=== PATIENT | female | born 1970 | race Caucasian/White ===

== ENCOUNTER 2016-07-27 23:00 | Emergency (ER) | payer MEDICAID, OTHER ==
[2016-07-28] MEDS ORDERED: CLINDAMYCIN HCL 150 MG CAPSULE PO ONE (01:56)
--- NOTE | 2016-07-28 01:57 | ER Document Report ---
ED General - General Chief Complaint: Abscess Stated Complaint: POSSIBLE BITE ON LEFT THIGH Notes: Patient is 46-year-old female who presents for complaint of redness and swelling over the inside aspect of her left thigh. She says she thinks she had a bug bite the redness continues to red and swollen the foreskin to ER. No fevers. No vomiting. No diarrhea. No other complaints at this time. TRAVEL OUTSIDE OF THE [place] IN LAST 30 DAYS: No - Related Data Allergies/Adverse Reactions: aspirin [From Aspirin Regimen Romero/Calcium] Allergy (Verified 09/26/15 15:01) calcium carbonate [From Aspirin Regimen Romero/Calcium] Allergy (Verified 15:01) Past Medical History - Social History Smoking Status: Never Smoker Chew tobacco use (# tins/day): No Frequency of alcohol use: None Drug Abuse: None Family History: Reviewed & Not Pertinent Patient has suicidal ideation: No Patient has homicidal ideation: No Pulmonary Medical History: Reports: Hx Asthma Neurological Medical History: Reports: Hx Migraine Renal/ Medical History: Denies: Hx Peritoneal Dialysis Musculoskeltal Medical History: Reports Hx Arthritis Psychiatric Medical History: Reports: Hx Bipolar Disorder, Hx Depression Past Surgical History: Reports: Hx Section, Hx Cholecystectomy, Hx Orthopedic Surgery - shoulder - Immunizations Hx Diphtheria, Pertussis, Tetanus Vaccination: Yes Review of Systems - Review of Systems Notes: My Normal Review Basic REVIEW OF SYSTEMS: CONSTITUTIONAL : Denies fever, chills, or sweats. Denies recent illness. RESPIRATORY: Denies cough, cold, or chest congestion. Denies shortness of breath, difficulty breathing, or wheezing. GASTROINTESTINAL: Denies abdominal pain. Denies nausea, vomiting, or diarrhea. Denies constipation. Last BM: MUSCULOSKELETAL: Denies neck or back pain or joint pain or swelling. SKIN: Denies rash or skin lesions. NEUROLOGICAL: Denies altered mental status or loss of consciousness. Denies headache. Denies weakness or paralysis or loss of use of either side. Denies problems with gait or speech. Denies sensory or motor loss. ALL OTHER SYSTEMS REVIEWED AND NEGATIVE. Physical Exam - Vital signs Vitals: Temp Pulse Resp BP Pulse Ox 98.4 F 77 16 131/70 H 98 07/27/16 23:08 07/27/16 23:08 07/27/16 23:08 07/27/16 23:08 07/27/16 23:08 - Notes Notes: General Appearance: Well nourished, alert, cooperative, no acute distress, no obvious discomfort. Well-appearing. Vitals: reviewed, See vital signs table. Eyes: PERRL, EOMI, Conjuctiva clear Extremities: strength 5/5 in all extremities, good pulses in all extremities, no swelling or tenderness in the extremities, no edema. Skin: Some redness and swelling to the left medial thigh. Area of redness approximately 3 inches in diameter. Is a small raised area in the middle consistent with a bug bite. There is no fluctuance. No abscess on palpation. Neuro: speech clear, oriented x 3, normal affect, responds appropriately to questions. Course - Vital Signs Vital signs: Temp Pulse Resp BP Pulse Ox 98.4 F 77 16 131/70 H 98 07/27/16 23:08 07/27/16 23:08 07/27/16 23:08 07/27/16 23:08 07/27/16 23:08 - Transfer of Care Notes: 07/28/16 02:01 Patient has what appears to be a bug bites with the super imposed secondary infection. This no skin necrosis. Nothing to suggest that this is a brown recluse bite. She's had no fevers. The area is warm to touch. We will place on clindamycin. I encourage her use ice packs to area. She has no palpable swelling or fluctuance. No evidence of abscess. She's encouraged return to ER if there is any spreading of the redness or swelling. Patient agrees with plan and will be discharged home. Dictation of this chart was performed using voice recognition software; therefore, there may be some unintended grammatical errors. Discharge - Discharge Clinical Impression: Insect bite Qualifiers: Encounter type: initial encounter Qualified Code(s): W57.XXXA - Bitten or stung by nonvenomous insect and other nonvenomous arthropods, initial encounter Cellulitis Qualifiers: Site of cellulitis: unspecified site Qualified Code(s): L03.90 - Cellulitis, unspecified Condition: Good Disposition: HOME, SELF-CARE Additional Instructions: Please place ice packs on the red area for 30 minutes at a time. Please take the antibiotic as prescribed. Please stop the antibiotics if you develop diarrhea. Please return to the ER immediately if you develop spreading redness, any skin breakdown or blackening, fevers, or feel unwell. Prescriptions: Clindamycin HCl 300 mg PO ASDIR #56 capsule
[2016-07-28 02:20] VITALS: BP 126/76
== END 2016-07-28 02:12 | disposition home or self-care (01) ==
LOC: ER 23:00
DX: L02.416 Cutaneous abscess of left lower limb (principal); W57.XXXA Bitten or stung by nonvenomous insect and other nonvenomous arthropods, initial encounter; Z88.6 Allergy status to analgesic agent
CPT/HCPCS: 99281

== ENCOUNTER 2017-08-24 20:06 | Emergency (ER) | payer OTHER ==
--- NOTE | 2017-08-24 20:33 | ER Document Report ---
ED Medical Screen (RME) - General Chief Complaint: Vaginal Bleeding Stated Complaint: VAGINAL BLEEDING Time Seen by Provider: 08/24/17 20:24 Notes: 47-year-old female with history of dysfunctional uterine bleeding. Was told she would likely need a hysterectomy but lost her insurance. Now has her insurance back and the bleeding started up again. States that she feels like she is going to pass out. Passing large blood clots the size of her fist. Cramping and pain but no fever, chills, sweats or other issues at this time I have greeted and performed a rapid initial assessment of this patient. A comprehensive ED assessment and evaluation of the patient, analysis of test results and completion of the medical decision making process will be conducted by additional ED providers. TRAVEL OUTSIDE OF THE [place] IN LAST 30 DAYS: No - Related Data Allergies/Adverse Reactions: aspirin [From Aspirin Regimen Romero/Calcium] Allergy (Verified 09/26/15 15:01) calcium carbonate [From Aspirin Regimen Romero/Calcium] Allergy (Verified 15:01) Past Medical History Pulmonary Medical History: Reports: Hx Asthma Neurological Medical History: Reports: Hx Migraine Renal/ Medical History: Denies: Hx Peritoneal Dialysis Musculoskeltal Medical History: Reports Hx Arthritis Psychiatric Medical History: Reports: Hx Bipolar Disorder, Hx Depression Past Surgical History: Reports: Hx Section, Hx Cholecystectomy, Hx Orthopedic Surgery - shoulder - Immunizations Hx Diphtheria, Pertussis, Tetanus Vaccination: Yes Physical Exam - Vital signs Vitals: Temp Pulse Resp BP Pulse Ox 98.5 F 70 18 125/80 100 08/24/17 20:28 08/24/17 20:28 08/24/17 20:28 08/24/17 20:28 08/24/17 20:28 Course - Vital Signs Vital signs: Temp Pulse Resp BP Pulse Ox 98.5 F 70 18 125/80 100 08/24/17 20:28 08/24/17 20:28 08/24/17 20:28 08/24/17 20:28 08/24/17 20:28
[2017-08-24 21:30] LABS: ABSOLUTE BASOPHILS # (AUTO) 0.1 10^3/uL (0.0-0.2); ABSOLUTE EOSINOPHILS # (AUTO) 0.3 10^3/uL (0.0-0.6); ABSOLUTE LYMPHOCYTES (AUTO) 2.8 10^3/uL (0.5-4.7); ABSOLUTE MONOCYTES (AUTO) 0.7 10^3/uL (0.1-1.4); ABSOLUTE NEUT (AUTO) 5.5 10^3/uL (1.7-8.2); BASOPHILS % (AUTO) 1.1 % (0-2); EOSINOPHILS % (AUTO) 2.8 % (0-6); HEMATOCRIT 27.5 % (36.0-47.0); HEMOGLOBIN 8.5 g/dL (12.0-15.5); LYMPHOCYTES % (AUTO) 30.2 % (13-45); MEAN CORPUSCULAR HEMOGLOBIN 20.4 pg (27.0-33.4); MEAN CORPUSCULAR HGB CONC 30.9 g/dL (32.0-36.0); MEAN CORPUSCULAR VOLUME 66 fl (80-97); MONOCYTES % (AUTO) 7.6 % (3-13); PLATELET COUNT 511 10^3/uL (150-450); RED BLOOD COUNT 4.15 10^6/uL (3.72-5.28); RED CELL DISTRIBUTION WIDTH 19.4 % (11.5-14.0); SEGMENTED NEUTROPHILS % (AUTO) 58.3 % (42-78); TOTAL CELLS COUNTED % (AUTO) 100 %; WHITE BLOOD COUNT 9.4 10^3/uL (4.0-10.5)
[2017-08-24 21:53] LABS: ALANINE AMINOTRANSFERASE 23 U/L (9-52); ALBUMIN 4.6 g/dL (3.5-5.0); ALKALINE PHOSPHATASE 57 U/L (38-126); ANION GAP 10 (5-19); ASPARTATE AMINO TRANSFERASE 18 U/L (14-36); BILIRUBIN,DIRECT 0.2 mg/dL (0.0-0.4); BILIRUBIN,TOTAL 0.2 mg/dL (0.2-1.3); BLOOD UREA NITROGEN 12 mg/dL (7-20); CALCIUM 9.6 mg/dL (8.4-10.2); CARBON DIOXIDE 30 mmol/L (22-30); CHLORIDE 100 mmol/L (98-107); GLUCOSE 77 mg/dL (75-110); POTASSIUM 4.1 mmol/L (3.6-5.0); TOTAL PROTEIN 7.9 g/dL (6.3-8.2)
--- NOTE | 2017-08-24 22:12 | RADIOLOGY REPORT (SQ) ---
EXAM DESCRIPTION: U/S NON-OB PELVIS TV W/O DOP COMPLETED DATE/TIME: 08/24/2017 9:56 pm REASON FOR STUDY: dysfunction bleeding LMP 06/30/2017 COMPARISON: 11/10/2015 TECHNIQUE: Dynamic and static grayscale images acquired of the pelvis via transvaginal approach and recorded on PACS. LIMITATIONS: None. FINDINGS: UTERUS: Contour normal. No mass. ENDOMETRIAL STRIPE: No focal or generalized thickening. No masses. CERVIX: 2.8 cm. 2 nabothian cysts. RIGHT OVARY: Ovary not seen. RIGHT OVARY DOPPLER: Normal arterial vascular flow without evidence for torsion. LEFT OVARY: Ovary not seen. LEFT OVARY DOPPLER: Normal arterial vascular flow without evidence for torsion. FREE FLUID: None noted. OTHER: No other significant finding. MEASUREMENTS: UTERUS: 10.2 x 5.9 x 5.4 cm. ENDOMETRIAL STRIPE: 6.7 mm. RIGHT OVARY: Ovary not seen. LEFT OVARY: Ovary not seen. IMPRESSION: 2 nabothian cysts were noted. The study was otherwise normal. TECHNICAL DOCUMENTATION: JOB ID: [id number]- All Rights Reserved Reading location - IP/workstation name: [email or web address]
[2017-08-24] MEDS ORDERED: NORMAL SALINE 1000 ML 1,000 ML IV ONE (23:46)
[2017-08-24] MEDS ORDERED: NORMAL SALINE 1000 ML 1,000 ML IV PRN (23:46)
[2017-08-24] MEDS ORDERED: TRANEXAMIC ACID INJ/PF 1,000 MG/10 ML SDV IV PRN (23:51)
--- NOTE | 2017-08-25 00:01 | ER Document Report ---
ED GI/ - General Chief Complaint: Vaginal Bleeding Stated Complaint: VAGINAL BLEEDING Time Seen by Provider: 08/24/17 20:24 Mode of Arrival: Ambulatory Information source: Patient Notes: History of present illness-47 years old female presents today with nearly 2 months history of irregular menses heavy menses and bleeding heavily. Recently last couple of days started having dizziness lightheadedness therefore presented to the ED. Passing blood clots. Having abdominal cramps. Denies any chest pain shortness of breath. Denies any other constitutional symptoms. REVIEW OF SYSTEMS: CONSTITUTIONAL : Denies fever, chills, or sweats. Denies recent illness. EENT: Denies eye, ear, throat, or mouth pain or symptoms. Denies nasal or sinus congestion or discharge. Denies throat, tongue, or mouth swelling or difficulty swallowing. CARDIOVASCULAR: Denies chest pain. Denies palpitations or racing or irregular heart beat. Denies ankle edema. RESPIRATORY: Denies cough, cold, or chest congestion. Denies shortness of breath, difficulty breathing, or wheezing. GASTROINTESTINAL: Denies abdominal pain or distention. Denies nausea, vomiting , or diarrhea. Denies blood in vomitus, stools, or per rectum. Denies black, tarry stools. Denies constipation. GENITOURINARY: Denies difficulty urinating, painful urination, burning, frequency, blood in urine, or discharge. FEMALE GENITOURINARY: Denies vaginal bleeding, heavy or abnormal periods, irregular periods. Denies vaginal discharge or odor. MUSCULOSKELETAL: Denies back or neck pain or stiffness. Denies joint pain or swelling. SKIN: Denies rash, lesions or sores. HEMATOLOGIC : Denies easy bruising or bleeding. LYMPHATIC: Denies swollen, enlarged glands. NEUROLOGICAL: Denies confusion or altered mental status. Denies passing out or loss of consciousness. Denies dizziness or lightheadedness. Denies headache. Denies weakness or paralysis or loss of use of either side. Denies problems with gait or speech. Denies sensory loss, numbness, or tingling. Denies seizures. PSYCHIATRIC: Denies anxiety or stress. Denies depression, suicidal ideation, or homicidal ideation. ALL OTHER SYSTEMS REVIEWED AND NEGATIVE. PHYSICAL EXAMINATION: GENERAL: Well-appearing, well-nourished and in no acute distress. HEAD: Atraumatic, normocephalic. EYES: Pupils equal round and reactive to light, extraocular movements intact, conjunctiva are normal. ENT: Nares patent, oropharynx clear without exudates. Moist mucous membranes. NECK: Normal range of motion, supple without lymphadenopathy LUNGS: Breath sounds clear to auscultation bilaterally and equal. No wheezes rales or rhonchi. HEART: Regular rate and rhythm without murmurs ABDOMEN: Soft, nontender, nondistended abdomen. No guarding, no rebound. No masses appreciated. Female : deferred Musculoskeletal: Normal range of motion, no pitting or edema. No cyanosis. NEUROLOGICAL: Cranial nerves grossly intact. Normal speech, normal gait. Normal sensory, motor exams PSYCH: Normal mood, normal affect. SKIN: Warm, Dry, normal turgor, no rashes or lesions noted. Dictation was performed using [employer] voice recognition software TRAVEL OUTSIDE OF THE [place] IN LAST 30 DAYS: No - HPI Patient complains to provider of: Abdominal pain - Related Data Allergies/Adverse Reactions: aspirin [From Aspirin Regimen Romero/Calcium] Allergy (Verified 09/26/15 15:01) calcium carbonate [From Aspirin Regimen Romero/Calcium] Allergy (Verified 15:01) Past Medical History - Social History Smoking Status: Former Smoker Chew tobacco use (# tins/day): No Frequency of alcohol use: Rare Drug Abuse: None Family History: Reviewed & Not Pertinent Patient has suicidal ideation: No Patient has homicidal ideation: No Pulmonary Medical History: Reports: Hx Asthma Neurological Medical History: Reports: Hx Migraine Renal/ Medical History: Denies: Hx Peritoneal Dialysis Musculoskeltal Medical History: Reports Hx Arthritis Psychiatric Medical History: Reports: Hx Bipolar Disorder, Hx Depression Past Surgical History: Reports: Hx Section, Hx Cholecystectomy, Hx Orthopedic Surgery - shoulder - Immunizations Hx Diphtheria, Pertussis, Tetanus Vaccination: Yes Review of Systems - Review of Systems Notes: As per history of complain Physical Exam - Vital signs Vitals: Temp Pulse Resp BP Pulse Ox 98.5 F 70 18 125/80 100 08/24/17 20:28 08/24/17 20:28 08/24/17 20:28 08/24/17 20:28 08/24/17 20:28 Course - Vital Signs Vital signs: Temp Pulse Resp BP Pulse Ox 98.5 F 70 18 125/80 100 08/24/17 20:28 08/24/17 20:28 08/24/17 20:28 08/24/17 20:28 08/24/17 20:28 - Laboratory Result Diagrams: 08/24/17 21:10 08/24/17 21:10 Laboratory results interpreted by me: 08/24/17 21:10 Hgb 8.5 L Hct 27.5 L MCV 66 L MCH 20.4 L MCHC 30.9 L RDW 19.4 H Plt Count 511 H - Diagnostic Test Radiology reviewed: Reports reviewed - 1. Ultrasound of the pelvis reported by radiologist as unremarkable except Bartholin's cyst. Discharge - Discharge Clinical Impression: Dysmenorrhea, Menstrual disorder Condition: Fair Instructions: Dysmenorrhea ([facility]) Prescriptions: Tranexamic Acid 1,300 mg PO TID 3 Days tablet
[2017-08-25 00:39] LABS: INTERNATIONAL RATION (INR) 0.91; PROTHROMBIN TIME 12.9 SEC (11.4-15.4)
[2017-08-25 02:25] VITALS: BP 121/74
== END 2017-08-25 02:23 | disposition home or self-care (01) ==
LOC: ER 20:06
DX: N94.6 Dysmenorrhea, unspecified (principal); N92.6 Irregular menstruation, unspecified; N88.8 Other specified noninflammatory disorders of cervix uteri; R42 Dizziness and giddiness; J45.909 Unspecified asthma, uncomplicated; Z88.6 Allergy status to analgesic agent; Z87.891 Personal history of nicotine dependence
CPT/HCPCS: 99284; 96361; 96374; 36415; 84703; 85025; 85610; 85730; 80053; 76830; J7030; J3490

== ENCOUNTER 2018-04-04 16:26 | Observation (INO) | payer OTHER ==
--- NOTE | 2018-04-04 17:01 | ER Document Report ---
ED General - General Mode of Arrival: Ambulatory Information source: Patient TRAVEL OUTSIDE OF THE [place] IN LAST 30 DAYS: No <LESLIE REESE - Last Filed: 04/04/18 17:08> <PAUL AGUILAR - Last Filed: 04/04/18 18:39> <MINI UNGER - Last Filed: 04/04/18 23:32> - General Chief Complaint: Chest Pain Stated Complaint: SHORTNESS OF BREATH Time Seen by Provider: 04/04/18 16:44 Notes: Patient is a 47 year old female presenting to the emergency department complaining of left peristernal chest pain and shortness of breath onset yesterday, worsening today. Patient states her chest pain is exacerbated with breathing and deep breathing and also complains of some heart palpitations. She states she becomes very short of breath on exertion. Patient states she has a history of asthma but does not attribute her shortness of breath to this due to her not hearing any wheezing. Patient states she is currently on her menstrual cycle which started early on Mar.28 and is described as heavy with a copious amount of blood clots. ( LESLIE REESE) Review of patient's records shows that in 11/09/2015 the patient had a hemoglobin of 6.1 and was transfused 3 units of packed RBCs. (PAUL AGUILAR) - Related Data Allergies/Adverse Reactions: Sulfa (Sulfonamide Antibiotics) Allergy (Intermediate, Verified 04/04/18 20:34) RASH aspirin [From Aspirin Regimen Romero/Calcium] Allergy (Verified 04/04/18 20:34) calcium carbonate [From Aspirin Regimen Romero/Calcium] Allergy (Verified 20:34) Past Medical History - General Information source: Patient - Social History Smoking Status: Former Smoker Cigarette use (# per day): No Chew tobacco use (# tins/day): No Smoking Education Provided: No Frequency of alcohol use: None Family History: Reviewed & Not Pertinent Pulmonary Medical History: Reports: Hx Asthma Neurological Medical History: Reports: Hx Migraine Musculoskeletal Medical History: Reports Hx Arthritis Psychiatric Medical History: Reports: Hx Bipolar Disorder, Hx Depression, Hx Post Traumatic Stress Disorder Past Surgical History: Reports: Hx Section, Hx Cholecystectomy, Hx Orthopedic Surgery - shoulder - Immunizations Hx Diphtheria, Pertussis, Tetanus Vaccination: Yes <LESLIE REESE - Last Filed: 04/04/18 17:08> - Medical History Medical History: Other - Chronic anemia, menorrhagia, transfused on 11/09/2015 for hemoglobin of 6.1 Renal/ Medical History: Reports: Other - Menorrhagia with chronic anemia <PAUL AGUILAR - Last Filed: 04/04/18 18:39> <MINI UNGER - Last Filed: 04/04/18 23:32> Other: States she is no longer on any medications for mental health (LESLIE REESE) Review of Systems - Review of Systems Constitutional: No symptoms reported EENT: No symptoms reported Cardiovascular: See HPI, Chest pain, Palpitations Respiratory: See HPI, Short of breath Gastrointestinal: No symptoms reported Genitourinary: No symptoms reported Female Genitourinary: No symptoms reported Musculoskeletal: No symptoms reported Skin: No symptoms reported Hematologic/Lymphatic: No symptoms reported Neurological/Psychological: No symptoms reported -: Yes All other systems reviewed and negative <LESLIE REESE - Last Filed: 04/04/18 17:08> - Review of Systems Female Genitourinary: Heavy/abnormal periods - Patient has a long history of heavy periods with clots.. denies: No symptoms reported <PAUL AGUILAR - Last Filed: 04/04/18 18:39> Physical Exam <LESLIE REESE - Last Filed: 04/04/18 17:08> <PAUL AGUILAR - Last Filed: 04/04/18 18:39> <MINI UNGER - Last Filed: 04/04/18 23:32> - Vital signs Vitals: Temp Pulse Resp BP Pulse Ox 98.4 F 69 20 129/56 H 100 04/04/18 16:39 04/04/18 16:39 04/04/18 16:39 04/04/18 16:39 04/04/18 16:39 - Notes Notes: GENERAL: Alert, interacts well. No acute distress. HEAD: Normocephalic, atraumatic. EYES: Pupils equal, round, and reactive to light. Extraocular movements intact. ENT: Oral mucosa moist, tongue midline. NECK: Full range of motion. Supple. Trachea midline. LUNGS: Clear to auscultation bilaterally, no wheezes, rales, or rhonchi. No respiratory distress. HEART: Regular rate and rhythm. No murmurs, gallops, or rubs. Sternum not tender to palpation. ABDOMEN: Soft, non-tender. Obese. Non-distended. Bowel sounds present in all 4 quadrants. EXTREMITIES: Moves all 4 extremities spontaneously. Bilateral calfs soft, no tenderness. No edema, radial and dorsalis pedis pulses 2/4 bilaterally. No cyanosis. NEUROLOGICAL: Alert and oriented x3. Normal speech. PSYCH: Normal affect, normal mood. SKIN: Warm, dry, normal turgor. No rashes or lesions noted. (LESLIE REESE) Course <HUGHLESLIE - Last Filed: 04/04/18 17:08> - Laboratory Result Diagrams: 04/04/18 17:05 04/04/18 17:05 - Diagnostic Test Radiology reviewed: Reports reviewed - Chest x-ray does not show an acute process. - EKG Interpretation by [place] EKG shows normal: Sinus rhythm, [place], Intervals, QRS Complexes, ST-T Waves Rate: Normal - 76 Rhythm: NSR - Transfer of Care Care transferred to following provider: Dr. Unger <PAUL AGUILAR - Last Filed: 04/04/18 18:39> - Laboratory Result Diagrams: 04/04/18 17:05 04/04/18 17:05 <MINI UNGER - Last Filed: 04/04/18 23:32> - Re-evaluation Re-evalutation: Patient was signed out to me, I reviewed the patient's chart, her CT angiogram of her chest was followed up on and was negative for PE, I discussed the case with Dr. Lyon, with [facility], who graciously accept the patient under their service, upon my examination, the patient was hemodynamically stable, and I was agreeable to plan of care for admission, and further evaluation. (MINI UNGER) - Vital Signs Vital signs: Temp Pulse Resp BP Pulse Ox 98.4 F 72 18 141/52 H 100 04/04/18 22:48 04/04/18 22:48 04/04/18 22:48 04/04/18 22:48 04/04/18 22:48 - Laboratory Laboratory results interpreted by me: 11/07/18 11/07/18 11/07/18 17:05 17:05 17:05 RBC 3.34 L Hgb 5.5 L Hct 19.1 L MCV 57 L MCH 16.6 L MCHC 28.9 L RDW 20.3 H Creatine Kinase 25 L Crossmatch See Detail - Transfer of Care Notes: 04/04/18 18:41 Patient is pending CTA chest report. She has 3 units of packed RBCs ordered for transfusion. (PAUL AGUILAR) Discharge <LESLIE REESE - Last Filed: 04/04/18 17:08> <PAUL AGUILAR - Last Filed: 04/04/18 18:39> - Discharge Admitting Provider: [facility] - Dr. Lyon Unit Admitted: Medical Floor - 2nd floor, not labor and delivery per Dr. Lyon <IMNI UNGER - Last Filed: 04/04/18 23:32> - Discharge Clinical Impression: Chronic blood loss anemia, Pleuritic chest pain, Dyspnea on exertion Menorrhagia Qualifiers: Menorrahagia type: with regular cycle Qualified Code(s): N92.0 - Excessive and frequent menstruation with regular cycle Condition: Stable Disposition: ADMITTED INPATIENT Scribe Documentation - Scribe Written by Scribe:: Ayden Das, 04/04/2018 17:05 acting as scribe for :: Chrissy <LESLIE REESE - Last Filed: 04/04/18 17:08>
--- NOTE | 2018-04-04 17:24 | RADIOLOGY REPORT (SQ) ---
EXAM DESCRIPTION: CHEST SINGLE VIEW COMPLETED DATE/TIME: 04/04/2018 5:14 pm REASON FOR STUDY: Pleuritic chest pain, dyspnea COMPARISON: None. EXAM PARAMETERS: NUMBER OF VIEWS: One view. TECHNIQUE: Single frontal radiographic view of the chest acquired. RADIATION DOSE: NA LIMITATIONS: None. FINDINGS: LUNGS AND PLEURA: No opacities, masses or pneumothorax. No pleural effusion. MEDIASTINUM AND HILAR STRUCTURES: No masses. Contour normal. HEART AND VASCULAR STRUCTURES: Cardiac silhouette is at the upper limits of normal in size. . Daphne l vasculature. BONES: No acute findings. HARDWARE: None in the chest. OTHER: No other significant finding. IMPRESSION: NO ACUTE RADIOGRAPHIC FINDING IN THE CHEST. TECHNICAL DOCUMENTATION: JOB ID: [id number] [employer]- All Rights Reserved Reading location - IP/workstation name: [email or web address]
[2018-04-04 17:25] LABS: ABSOLUTE BASOPHILS # (AUTO) 0.1 10^3/uL (0.0-0.2); ABSOLUTE EOSINOPHILS # (AUTO) 0.3 10^3/uL (0.0-0.6); ABSOLUTE LYMPHOCYTES (AUTO) 1.5 10^3/uL (0.5-4.7); ABSOLUTE MONOCYTES (AUTO) 0.6 10^3/uL (0.1-1.4); ABSOLUTE NEUT (AUTO) 4.4 10^3/uL (1.7-8.2); BASOPHILS % (AUTO) 1.3 % (0-2); EOSINOPHILS % (AUTO) 4.7 % (0-6); HEMATOCRIT 19.1 % (36.0-47.0); LYMPHOCYTES % (AUTO) 22.4 % (13-45); MEAN CORPUSCULAR HEMOGLOBIN 16.6 pg (27.0-33.4); MEAN CORPUSCULAR HGB CONC 28.9 g/dL (32.0-36.0); PLATELET COUNT 419 10^3/uL (150-450); RED BLOOD COUNT 3.34 10^6/uL (3.72-5.28); RED CELL DISTRIBUTION WIDTH 20.3 % (11.5-14.0); SEGMENTED NEUTROPHILS % (AUTO) 63.6 % (42-78); TOTAL CELLS COUNTED % (AUTO) 100 %; WHITE BLOOD COUNT 6.9 10^3/uL (4.0-10.5)
[2018-04-04 17:30] LABS: HEMOGLOBIN 5.5 g/dL (12.0-15.5)
[2018-04-04 17:41] LABS: ALANINE AMINOTRANSFERASE 16 U/L (9-52); ALKALINE PHOSPHATASE 50 U/L (38-126); ANION GAP 13 (5-19); ASPARTATE AMINO TRANSFERASE 17 U/L (14-36); BILIRUBIN,DIRECT 0.1 mg/dL (0.0-0.4); BILIRUBIN,TOTAL 0.3 mg/dL (0.2-1.3); BLOOD UREA NITROGEN 10 mg/dL (7-20); CALCIUM 9.2 mg/dL (8.4-10.2); CARBON DIOXIDE 25 mmol/L (22-30); CHLORIDE 104 mmol/L (98-107); CREATINE KINASE 25 U/L (30-135); GLUCOSE 101 mg/dL (75-110); POTASSIUM 4.3 mmol/L (3.6-5.0); SODIUM 141.8 mmol/L (137-145)
[2018-04-04 17:46] LABS: ANISOCYTOSIS 2+; HYPOCHROMASIA 4+; PLATELET COMMENT ADEQUATE; POLYCHROMASIA SLIGHT
[2018-04-04] MEDS ORDERED: NORMAL SALINE 250 ML IV PRN (17:46)
[2018-04-04 17:47] LABS: MEAN CORPUSCULAR VOLUME 57 fl (80-97)
[2018-04-04 17:53] LABS: CREATINE KINASE MB 0.64 ng/mL (<4.55)
[2018-04-04 17:54] LABS: TROPONIN I < 0.012 ng/mL
[2018-04-04 17:59] LABS: INTERNATIONAL RATION (INR) 0.94
[2018-04-04 18:00] LABS: PARTIAL THROMBOPLASTIN TIME 34.9 SEC (23.5-35.8)
--- NOTE | 2018-04-04 18:13 | EKG REPORT ---
SEVERITY:- NORMAL ECG - SINUS RHYTHM : Confirmed by: Charly Erwin MD 04-Apr-2018 18:12:28
--- NOTE | 2018-04-04 19:02 | RADIOLOGY REPORT (SQ) ---
EXAM DESCRIPTION: CTA CHEST COMPLETED DATE/TIME: 04/04/2018 6:36 pm REASON FOR STUDY: Pleuritic chest pain, dyspnea on exertion COMPARISON: None. TECHNIQUE: CT scan of the chest performed using helical scanning technique with dynamic intravenous contrast injection. Images reviewed with lung, soft tissue and bone windows. Reconstructed coronal and sagittal MPR images reviewed. Additional 3 dimensional post-processing performed to develop Maximal Intensity Projection images (PA P). All images stored on PACS. All CT scanners at this facility use dose modulation, iterative reconstruction, and/or weight based d osing when appropriate to reduce radiation dose to as low as reasonably achievable (ALARA). [facility]: Dose Right [facility]: CareDose [facility]: Dose Right [facility]: Teradose 4D [facility]: Jildy CONTRAST TYPE AND DOSE: contrast/concentration: Isovue 350.00 mg/ml; Total Contrast Delivered: 79.0 ml; Total Saline Delivered: 101.0 ml 79 mL Isovue 350 Contrast bolus optimized for the pulmonary arteries. Not diagnostic for the aorta. RENAL FUNCTION: None required. The patient is less than 50 years old. RADIATION DOSE: CT Rad equipment meets quality standard of care and radiation dose reduction techniq ues were employed. CTDIvol: 18.0 - 46.3 mGy. DLP: 671 mGy-cm. . LIMITATIONS: None. FINDINGS: LUNGS AND PLEURA: No masses, infiltrates, or pneumothorax. No pleural effusions or pleura l calcifications. Bullous changes are identified in the right lung base. AORTA AND GREAT VESSELS: No aneurysm. Contrast bolus not optimized for the aorta. HEART: No pericardial effusion. No significant coronary artery calcifications. PULMONARY ARTERIES: No emboli visualized in the main pulmonary arteries or the segmental branches. HILAR AND MEDIASTINAL STRUCTURES: No identified masses or abnormal nodes. HARDWARE: None in the chest. UPPER ABDOMEN: No significant findings. Limited exam. THYROID AND OTHER SOFT TISSUES: No masses. No adenopathy. BONES: No acute or significant finding. 3D MIPS: Confirm above findings. OTHER: No other significant finding. IMPRESSION: No evidence for pulmonary embolic disease. No acute consolidations or pleural effusions . Bullous changes are identified in the right lung base. Other findings as noted above. COMMENT: Quality ID # [id number]: Final reports with documentation of one or more dose reduction techniques (e.g., Automated exposure control, adjustment of the mA and/or kV according to patient size, use of iterative reconstruction technique) TECHNICAL DOCUMENTATION: JOB ID: [id number] [employer]- All Rights Reserved Reading location - IP/workstation name: [email or web address]
--- NOTE | 2018-04-04 22:27 | RADIOLOGY REPORT (SQ) ---
EXAM DESCRIPTION: US TRANSVAGINAL COMPLETED DATE/TME: 04/04/2018 19:30 CLINICAL HISTORY: 47 years, Female, abnormal uterine bleeding Findings: Uterus is anteverted and measures 9.7 x 5.8 x 5.6 cm. Endometrium measures 2 cm in thickness. Right ovary measures 3.5 x 3.8 x 2.3 cm. Left ovary is not visualized. Right ovarian cyst measures 3.1 x 3.0 x 2.1 cm. This does not require follow-up at this size and age. No free fluid in the cul-de-sac. No abnormal adnexal masses. IMPRESSION: Moderate endometrial thickening, nonspecific.
--- NOTE | 2018-04-04 23:49 | PDOC H&P ---
History of Present Illness Admission Date/PCP: 04/04/18 19:57 Patient complains of: Heavy vaginal bleeding History of Present Illness: ANUSHKA FELIPE is a 47 year old female A2 with a long history of heavy vaginal bleeding with menses lasting 2 wks. She was admitted for a similar problem in 2015 but did not followup for treatment because of loss of insurance. She got insurance in Jun but has neglected her health because of other family issues including the loss of a 21 yo son with diabetes and renal failure. She presents tonight with anemia symptoms. Past Medical History LMP: current Last Pap Smear: 11/18/15 Pulmonary Medical History: Reports: Asthma Neurological Medical History: Reports: Migraine Renal/ Medical History: Reports: Other - Menorrhagia with chronic anemia Musculoskeltal Medical History: Reports: Arthritis Psychiatric Medical History: Reports: Bipolar Disorder, Depression, Post Traumatic Stress Disorder Past Surgical History Past Surgical History: Reports: Section, Cholecystectomy, Orthopedic Surgery - shoulder Social History Smoking Status: Former Smoker Drugs: None Family History Family History: Reviewed & Not Pertinent Parental Family History Reviewed: Yes Children Family History Reviewed: Yes Sibling(s) Family History Reviewed.: Yes Medication/Allergy Home Medications: Albuterol Sulfate [Proair Hfa Inhalation Aerosol 8.5 gm Mdi] 2 puff IH Q4HP PRN 04/04/18 Albuterol Sulfate [Ventolin 0.083% Neb 2.5 mg/3 ml Ampul] 1 vial NEB RTQ4HP PRN 04/04/18 Cetirizine HCl [Zyrtec 10 mg Tablet] 1 tab PO DAILY 04/04/18 Allergies/Adverse Reactions: Sulfa (Sulfonamide Antibiotics) Allergy (Intermediate, Verified 04/04/18 20:34) RASH aspirin [From Aspirin Regimen Romero/Calcium] Allergy (Verified 04/04/18 20:34) calcium carbonate [From Aspirin Regimen Romero/Calcium] Allergy (Verified 20:34) Review of Systems Constitutional: PRESENT: chills, fatigue Respiratory: PRESENT: as per HPI Genitourinary: PRESENT: as per HPI Psychiatric: PRESENT: anxiety Physical Exam - Physical Exam Vital Signs: Temp Pulse Resp BP Pulse Ox 98.4 F 72 18 141/52 H 100 04/04/18 22:48 04/04/18 22:48 04/04/18 22:48 04/04/18 22:48 04/04/18 22:48 Intake & Output 04/03/18 04/04/18 04/05/18 06:59 06:59 06:59 Intake Total 300 Balance 300 General appearance: PRESENT: mild distress Head exam: PRESENT: atraumatic, normocephalic Respiratory exam: PRESENT: unlabored Cardiovascular exam: PRESENT: RRR Vascular exam: PRESENT: normal capillary refill GI/Abdominal exam: PRESENT: soft Rectal exam: PRESENT: deferred Extremities exam: PRESENT: full ROM. ABSENT: calf tenderness, clubbing, pedal edema Musculoskeletal exam: PRESENT: ambulatory, normal inspection Neurological exam: PRESENT: alert, awake, oriented to person, oriented to place , oriented to time, oriented to situation, CN II-XII grossly intact. ABSENT: motor sensory deficit - Gynecological Exam Cervix: other - vaginal bleeding from cervix per ER Result Impressions: Chest X-Ray 04/04/18 16:53 IMPRESSION: NO ACUTE RADIOGRAPHIC FINDING IN THE CHEST. Chest/Abdomen CTA 04/04/18 17:54 IMPRESSION: No evidence for pulmonary embolic disease. No acute consolidations or pleural effusions. Bullous changes are identified in the right lung base. Other findings as noted above. Transvaginal US 04/04/18 19:30 IMPRESSION: Moderate endometrial thickening, nonspecific. Assessment & Plan - Diagnosis (1) Chronic blood loss anemia Is this a current diagnosis for this admission?: Yes (2) Menorrhagia Qualifiers: Menorrahagia type: with regular cycle Qualified Code(s): N92.0 - Excessive and frequent menstruation with regular cycle Is this a current diagnosis for this admission?: Yes - Time Time Spent: 30 to 50 Minutes Anticipated discharge: Home Within: within 48 hours - Plan Summary Plan Summary: Plan to complete the transfusion. NPO and consider D and C. May also consider an ablation.
[2018-04-04] MEDS ORDERED: ALBUTEROL SULFATE HFA (90 MCG/PUFF) 200 PUFF/8.5 GM MDI IH PRN (23:54)
[2018-04-05] MEDS: RINGERS SOLUTION,LACTATED 1,000 ML IV PRN ×3 (05:41→18:01)
[2018-04-05 06:58] LABS: ABSOLUTE BASOPHILS # (AUTO) 0.1 10^3/uL (0.0-0.2); ABSOLUTE EOSINOPHILS # (AUTO) 0.3 10^3/uL (0.0-0.6); ABSOLUTE LYMPHOCYTES (AUTO) 1.8 10^3/uL (0.5-4.7); ABSOLUTE MONOCYTES (AUTO) 0.6 10^3/uL (0.1-1.4); ABSOLUTE NEUT (AUTO) 4.6 10^3/uL (1.7-8.2); BASOPHILS % (AUTO) 1.1 % (0-2); EOSINOPHILS % (AUTO) 4.2 % (0-6); HEMATOCRIT 25.6 % (36.0-47.0); LYMPHOCYTES % (AUTO) 24.2 % (13-45); MEAN CORPUSCULAR HGB CONC 30.7 g/dL (32.0-36.0); MONOCYTES % (AUTO) 7.9 % (3-13); PLATELET COUNT 327 10^3/uL (150-450); RED BLOOD COUNT 3.92 10^6/uL (3.72-5.28); RED CELL DISTRIBUTION WIDTH 27.2 % (11.5-14.0); SEGMENTED NEUTROPHILS % (AUTO) 62.6 % (42-78); TOTAL CELLS COUNTED % (AUTO) 100 %; WHITE BLOOD COUNT 7.3 10^3/uL (4.0-10.5)
[2018-04-05 07:13] LABS: MEAN CORPUSCULAR VOLUME 65 fl (80-97)
[2018-04-05 07:16] LABS: HEMOGLOBIN 7.9 g/dL (12.0-15.5)
[2018-04-05 07:19] LABS: POLYCHROMASIA SLIGHT
[2018-04-05 07:20] LABS: ANISOCYTOSIS 3+; HYPOCHROMASIA 2+; OVALOCYTES SLIGHT; PLATELET COMMENT ADEQUATE; POIKILOCYTOSIS SLIGHT
[2018-04-05] MEDS ORDERED: ALBUTEROL SULFATE HFA (90 MCG/PUFF) 200 PUFF/8.5 GM MDI IH PRN (08:15)
[2018-04-05] MEDS ORDERED: NORMAL SALINE 250 ML IV PRN (10:12)
--- NOTE | 2018-04-05 10:18 | PDOC PROGRESS REPORT ---
Subjective Progress Note for:: 04/05/18 Subjective:: pt feels weak and SOB Reason For Visit: MENORRHAGIA AND CHRONIC BLOOD LOSS ANEMIA Physical Exam - Physical Exam Vital Signs: Temp Pulse Resp BP Pulse Ox 98.1 F 59 L 16 133/59 H 99 04/05/18 07:55 04/05/18 07:55 04/05/18 07:55 04/05/18 07:55 04/05/18 07:55 Intake & Output 04/04/18 04/05/18 04/06/18 06:59 06:59 06:59 Intake Total 1000 Balance 1000 General appearance: PRESENT: no acute distress Respiratory exam: PRESENT: clear to auscultation malu Cardiovascular exam: PRESENT: RRR - Gynecological Exam Cervix: other - vaginal bleeding from cervix per ER Result Laboratory Results: 04/05/18 06:34 04/05/18 06:34 WBC 7.3 RBC 3.92 Hgb 7.9 L D Hct 25.6 L MCV 65 L D MCH 20.0 L MCHC 30.7 L RDW 27.2 H Plt Count 327 Seg Neutrophils % 62.6 Lymphocytes % 24.2 Monocytes % 7.9 Eosinophils % 4.2 Basophils % 1.1 Absolute Neutrophils 4.6 Absolute Lymphocytes 1.8 Absolute Monocytes 0.6 Absolute Eosinophils 0.3 Absolute Basophils 0.1 Impressions: Chest X-Ray 04/04/18 16:53 IMPRESSION: NO ACUTE RADIOGRAPHIC FINDING IN THE CHEST. Chest/Abdomen CTA 04/04/18 17:54 IMPRESSION: No evidence for pulmonary embolic disease. No acute consolidations or pleural effusions. Bullous changes are identified in the right lung base. Other findings as noted above. Transvaginal US 04/04/18 19:30 IMPRESSION: Moderate endometrial thickening, nonspecific. Assessment & Plan - Diagnosis (1) Chronic blood loss anemia Is this a current diagnosis for this admission?: Yes (2) Menorrhagia Qualifiers: Menorrahagia type: with regular cycle Qualified Code(s): N92.0 - Excessive and frequent menstruation with regular cycle Is this a current diagnosis for this admission?: Yes (3) Anemia Qualifiers: Anemia type: iron deficiency Iron deficiency anemia type: chronic blood loss Qualified Code(s): D50.0 - Iron deficiency anemia secondary to blood loss (chronic) Is this a current diagnosis for this admission?: Yes (4) Dyspnea on exertion Is this a current diagnosis for this admission?: Yes - Time Time Spent with patient: 15-24 minutes - Plan Summary Plan Summary: transfuse additional 2 units per protocol
[2018-04-05 13:53] LABS: PATH REVIEW PATHOLOGIST REVIEWED
[2018-04-05 20:53] LABS: HEMATOCRIT 31.5 % (36.0-47.0); MEAN CORPUSCULAR HEMOGLOBIN 22.2 pg (27.0-33.4); MEAN CORPUSCULAR HGB CONC 32.1 g/dL (32.0-36.0); PLATELET COUNT 334 10^3/uL (150-450); RED BLOOD COUNT 4.56 10^6/uL (3.72-5.28); RED CELL DISTRIBUTION WIDTH 28.4 % (11.5-14.0); WHITE BLOOD COUNT 7.6 10^3/uL (4.0-10.5)
[2018-04-05 21:12] LABS: HEMOGLOBIN 10.1 g/dL (12.0-15.5)
[2018-04-05 21:13] LABS: MEAN CORPUSCULAR VOLUME 69 fl (80-97)
[2018-04-06] MEDS: RINGERS SOLUTION,LACTATED 1,000 ML IV PRN ×2 (01:56→11:27)
[2018-04-06 11:46] VITALS: BP 135/68
--- NOTE | 2018-04-06 16:18 | PDOC DISCHARGE SUMMARY ---
General - Admit/Disc Date/PCP Admission Date/Primary Care Provider: 04/04/18 19:57 Discharge Date: 04/04/18 - Additional Information Resuscitation Status: Full Code Discharge Diet: As Tolerated Discharge Activity: Activity As Tolerated Prescriptions: Furosemide [Lasix 20 mg Tablet] 20 mg PO QAM 3 Days #3 tablet Medroxyprogesterone Acetate [Provera] 20 mg PO TID 28 Days #20 tablet Home Medications: Albuterol Sulfate [Proair HFA Inhalation Aerosol 8.5 gm MDI] 2 puff IH Q4HP PRN 04/04/18 Albuterol Sulfate [Ventolin 0.083% Neb 2.5 mg/3 mL Ampul] 1 vial NEB RTQ4HP PRN 04/04/18 Cetirizine HCl [Zyrtec 10 mg Tablet] 1 tab PO DAILY 04/04/18 Furosemide [Lasix 20 mg Tablet] 20 mg PO QAM 3 Days #3 tablet 04/06/18 Medroxyprogesterone Acetate [Provera] 20 mg PO TID 28 Days #20 tablet 04/06/18 History of Present Illness History of Present Illness: ANUSHKA FELIPE is a 47 year old female Physical Exam - Physical Exam Vital Signs: Temp Pulse Resp BP Pulse Ox 98.5 F 64 16 135/68 H 98 04/06/18 11:45 04/06/18 11:45 04/06/18 11:45 04/06/18 11:45 04/06/18 11:45 Intake & Output 04/05/18 04/06/18 04/07/18 06:59 06:59 06:59 Intake Total 1000 4763 1500 Balance 1000 4763 1500 - Gynecological Exam Cervix: other - vaginal bleeding from cervix per ER Result Laboratory Results: 04/05/18 20:40 04/05/18 20:40 WBC 7.6 RBC 4.56 Hgb 10.1 L D Hct 31.5 L MCV 69 L D MCH 22.2 L MCHC 32.1 RDW 28.4 H Plt Count 334 Impressions: Chest X-Ray 04/04/18 16:53 IMPRESSION: NO ACUTE RADIOGRAPHIC FINDING IN THE CHEST. Chest/Abdomen CTA 04/04/18 17:54 IMPRESSION: No evidence for pulmonary embolic disease. No acute consolidations or pleural effusions. Bullous changes are identified in the right lung base. Other findings as noted above. Transvaginal US 04/04/18 19:30 IMPRESSION: Moderate endometrial thickening, nonspecific.
== END 2018-04-06 18:23 | disposition home or self-care (01) ==
LOC: ER 16:26 → EH 19:57 → INTOOBSV 19:57 → 2N 22:44
PROVIDERS: ADMIT Obstetrics & Gynecology; ATTEND Obstetrics & Gynecology
PROC: 30233N1 Transfusion of Nonautologous Red Blood Cells into Peripheral Vein, Percutaneous Approach (ICD-10-PCS; principal; 2018-04-04)
PROC: 30233N1 Transfusion of Nonautologous Red Blood Cells into Peripheral Vein, Percutaneous Approach (ICD-10-PCS; 2018-04-05)
DX: D50.0 Iron deficiency anemia secondary to blood loss (chronic) (principal); N92.0 Excessive and frequent menstruation with regular cycle; R06.09 Other forms of dyspnea; R07.81 Pleurodynia; E66.9 Obesity, unspecified; J45.909 Unspecified asthma, uncomplicated; F41.9 Anxiety disorder, unspecified; Z87.891 Personal history of nicotine dependence; Z90.49 Acquired absence of other specified parts of digestive tract
CPT/HCPCS: 93005; 99285; 86900; 86901; 36415 ×2; 82553; 36430; 86850; 82550; 84703; 85025 ×2; 85027; 85610; 85730; 80053; 84484; 86920; 85379; 71045; 76830; 93976; 71275; 93010; P9016 ×2; J7120 ×2; G0378; J3490

== ENCOUNTER 2018-04-22 04:12 | Emergency (ER) | payer OTHER ==
--- NOTE | 2018-04-22 04:33 | ER Document Report ---
ED GI/ - General Chief Complaint: Vaginal Bleeding Stated Complaint: VAGINAL BLEEDING AND CRAMPING Time Seen by Provider: 04/22/18 04:24 Notes: Patient is a 47-year-old female that comes to the emergency department for chief complaint of heavy vaginal bleeding. She states that she was admitted here for anemia from heavy bleeding, discharged on 3 days Provera (on 04/06/18), given Depo-Provera shot, states that 3 days ago she started bleeding heavily again. Reports she has gone through the largest pads (3 pads in the past 4 hours). Reports some dizziness but denies dizziness. Down, denies passing out. She is on iron, no other medications at home. Pending results of uterine biopsy. TRAVEL OUTSIDE OF THE [place] IN LAST 30 DAYS: No - Related Data Allergies/Adverse Reactions: Sulfa (Sulfonamide Antibiotics) Allergy (Intermediate, Verified 04/22/18 04:13) RASH aspirin [From Aspirin Regimen Romero/Calcium] Allergy (Verified 04/22/18 04:13) calcium carbonate [From Aspirin Regimen Romero/Calcium] Allergy (Verified 04:13) Past Medical History - General Information source: Patient - Social History Smoking Status: Never Smoker Frequency of alcohol use: None Drug Abuse: None Lives with: Family Family History: Reviewed & Not Pertinent - Past Medical History Cardiac Medical History: Denies: Hx Congestive Heart Failure, Hx Heart Attack, Hx Hypertension Pulmonary Medical History: Reports: Hx Asthma Denies: Hx Bronchitis, Hx COPD Neurological Medical History: Reports: Hx Migraine Renal/ Medical History: Denies: Hx End Stage Renal Disease, Hx Kidney Stones, Hx Peritoneal Dialysis GI Medical History: Reports: Hx Ulcer Musculoskeletal Medical History: Reports Hx Arthritis Psychiatric Medical History: Reports: Hx Bipolar Disorder, Hx Depression, Hx Post Traumatic Stress Disorder Denies: Hx Schizophrenia Past Surgical History: Reports: Hx Section, Hx Cholecystectomy, Hx Orthopedic Surgery - shoulder - Immunizations Hx Diphtheria, Pertussis, Tetanus Vaccination: Yes Review of Systems - Review of Systems Constitutional: No symptoms reported EENT: No symptoms reported Cardiovascular: See HPI Respiratory: No symptoms reported Gastrointestinal: No symptoms reported Genitourinary: See HPI Female Genitourinary: No symptoms reported Musculoskeletal: No symptoms reported Skin: No symptoms reported Hematologic/Lymphatic: No symptoms reported Neurological/Psychological: No symptoms reported Physical Exam - Vital signs Vitals: Temp Pulse Resp BP Pulse Ox 98 F 75 20 127/61 H 98 04/22/18 04:13 04/22/18 04:13 04/22/18 04:13 04/22/18 04:13 04/22/18 04:13 - Notes Notes: GENERAL: Alert, interacts well. No acute distress. HEAD: Normocephalic, atraumatic. EYES: Pupils equal, round, and reactive to light. Extraocular movements intact. ENT: Oral mucosa moist, tongue midline. Oropharynx unremarkable. Airway patent. Nares patent, no nasal septal hematoma, TM's intact. NECK: Full range of motion. Supple. Trachea midline. LUNGS: Clear to auscultation bilaterally, no wheezes, rales, or rhonchi. No respiratory distress. HEART: Regular rate and rhythm. No murmur ABDOMEN: Soft, non-tender. Non-distended. Bowel sounds present in all 4 quadrants. GENITOURINARY: Moderately large amount of vaginal bleeding currently with also some clots noted in the vaginal canal. No tenderness noted. No discharge otherwise. No concerning findings otherwise. Exam performed with Briana PCT at bedside. EXTREMITIES: Moves all 4 extremities spontaneously. No edema, normal radial and dorsalis pedis pulses bilaterally. No cyanosis. BACK: no cervical, thoracic, lumbar midline tenderness. No saddle anesthesia, normal distal neurovascular exam. NEUROLOGICAL: Alert and oriented x3. Normal speech. [cranial nerves II through XII grossly intact]. PSYCH: Normal affect, normal mood. SKIN: Slightly pale. No rashes or lesions noted. Course - Re-evaluation Re-evalutation: On initial presentation patient is not tachycardic, she is not hypotensive, however she is somewhat pale. On examination she is bleeding with a fairly large amount and passage of clots. Given TXA, workup pending, type and screen performed. Updated Dr. Denise. Hemoglobin took a long time to result but finally resulted, hemoglobin has dropped from 10.1-8.1, PTT is slightly prolonged, remaining laboratory workup generally unremarkable. test is negative. Patient has slowed down bleeding significantly after TXA. 04/22/18 06:30 Called and spoke with Dr. Lyon, [facility] on-call, he recommends 25 mg of estrogen IV. After 30 minutes approximately bleeding appears to have completely stopped. 04/22/[address] Lyon again, biopsy results were negative, patient will need follow-up ablation most likely. He recommends 10 mg of Provera daily us to schedule/perform ablation, return precautions, patient to take her iron. I discussed this with patient, patient states understanding and agreement with plan. Patient was able to stand and ambulate for me in the room without any dizziness or symptoms. - Vital Signs Vital signs: Temp Pulse Resp BP Pulse Ox 98 F 75 15 121/61 100 04/22/18 04:13 04/22/18 04:13 04/22/18 07:01 04/22/18 07:01 04/22/18 07:01 - Laboratory Result Diagrams: 04/22/18 05:10 04/22/18 05:10 Laboratory results interpreted by me: 04/22/18 04/22/18 04/22/18 05:10 05:10 05:10 RBC 3.44 L Hgb 8.1 L Hct 25.0 L MCV 73 L D MCH 23.4 L RDW 30.8 H Eosinophils % 6.8 H APTT 36.2 H Total Protein 5.9 L Albumin 3.3 L Discharge - Discharge Clinical Impression: Menorrhagia Qualifiers: Menorrahagia type: with irregular cycle Qualified Code(s): N92.1 - Excessive and frequent menstruation with irregular cycle Anemia Qualifiers: Anemia type: iron deficiency Iron deficiency anemia type: chronic blood loss Qualified Code(s): D50.0 - Iron deficiency anemia secondary to blood loss ( chronic) Condition: Stable Disposition: HOME, SELF-CARE Additional Instructions: Your hemoglobin today is 8.1. I spoke with Dr. Lyon, [facility] [employer]. Recommendation is for you to be given the 10 mg of Provera daily, call Monday for close follow-up for likely ablation with [facility] office. Continue your iron. Return if you worsen including returned heavy bleeding, dizziness, passing out, severe abdominal pain, or any other concerning or worsening symptoms. Prescriptions: Medroxyprogesterone Acet [Provera 10 Mg Tablet] 10 mg PO ASDIR #30 tablet Forms: Special Work Note
[2018-04-22] MEDS ORDERED: TRANEXAMIC ACID INJ/PF 1,000 MG/10 ML SDV IV ONE (04:40)
[2018-04-22] MEDS ORDERED: NORMAL SALINE 1000 ML 1,000 ML IV ONE (04:59)
[2018-04-22] MEDS ORDERED: ONDANSETRON HCL INJ/PF 4 MG/2 ML SDV IV ONE (05:17)
[2018-04-22] MEDS ORDERED: FENTANYL CITRATE INJ/PF 100 MCG/2 ML AMPUL IV ONE (05:17)
[2018-04-22 05:31] LABS: INTERNATIONAL RATION (INR) 1.03
[2018-04-22 05:32] LABS: PARTIAL THROMBOPLASTIN TIME 36.2 SEC (23.5-35.8)
[2018-04-22 05:44] LABS: ALANINE AMINOTRANSFERASE 22 U/L (9-52); ALBUMIN 3.3 g/dL (3.5-5.0); ALKALINE PHOSPHATASE 39 U/L (38-126); ANION GAP 8 (5-19); ASPARTATE AMINO TRANSFERASE 18 U/L (14-36); BILIRUBIN,DIRECT 0.2 mg/dL (0.0-0.4); BILIRUBIN,TOTAL 0.2 mg/dL (0.2-1.3); BLOOD UREA NITROGEN 16 mg/dL (7-20); CALCIUM 8.5 mg/dL (8.4-10.2); CARBON DIOXIDE 27 mmol/L (22-30); CHLORIDE 105 mmol/L (98-107); GLUCOSE 105 mg/dL (75-110); POTASSIUM 4.2 mmol/L (3.6-5.0); SODIUM 139.8 mmol/L (137-145); TOTAL PROTEIN 5.9 g/dL (6.3-8.2)
[2018-04-22 05:49] LABS: ABSOLUTE BASOPHILS # (AUTO) 0.1 10^3/uL (0.0-0.2); ABSOLUTE EOSINOPHILS # (AUTO) 0.4 10^3/uL (0.0-0.6); ABSOLUTE LYMPHOCYTES (AUTO) 1.5 10^3/uL (0.5-4.7); ABSOLUTE MONOCYTES (AUTO) 0.5 10^3/uL (0.1-1.4); ABSOLUTE NEUT (AUTO) 3.8 10^3/uL (1.7-8.2); BASOPHILS % (AUTO) 1.1 % (0-2); EOSINOPHILS % (AUTO) 6.8 % (0-6); HEMOGLOBIN 8.1 g/dL (12.0-15.5); LYMPHOCYTES % (AUTO) 24.4 % (13-45); MEAN CORPUSCULAR HEMOGLOBIN 23.4 pg (27.0-33.4); MEAN CORPUSCULAR HGB CONC 32.3 g/dL (32.0-36.0); MONOCYTES % (AUTO) 7.6 % (3-13); PLATELET COUNT 400 10^3/uL (150-450); RED BLOOD COUNT 3.44 10^6/uL (3.72-5.28); RED CELL DISTRIBUTION WIDTH 30.8 % (11.5-14.0); SEGMENTED NEUTROPHILS % (AUTO) 60.1 % (42-78); TOTAL CELLS COUNTED % (AUTO) 100 %; WHITE BLOOD COUNT 6.3 10^3/uL (4.0-10.5)
[2018-04-22 06:20] LABS: MEAN CORPUSCULAR VOLUME 73 fl (80-97)
[2018-04-22 06:21] LABS: ANISOCYTOSIS 3+; HYPOCHROMASIA 3+; PLATELET COMMENT ADEQUATE; POLYCHROMASIA 1+
[2018-04-22] MEDS ORDERED: ESTROGENS,CONJUGATED 25 MG VIAL IV ONE (06:26)
[2018-04-22] MEDS ORDERED: ESTROGENS,CONJUGATED 25 MG VIAL ONE (06:38)
[2018-04-22 07:28] VITALS: BP 107/73
== END 2018-04-22 07:46 | disposition home or self-care (01) ==
LOC: ER 04:12
DX: N92.1 Excessive and frequent menstruation with irregular cycle (principal); R42 Dizziness and giddiness; J45.909 Unspecified asthma, uncomplicated
CPT/HCPCS: 99284; 96361; 96374; 96375; 86900; 86901; 36415; 86850; 84703; 85025; 85610; 85730; 80053; J1410; J3010; J2405; J7030; J3490

== ENCOUNTER 2018-09-21 04:32 | Emergency (ER) | payer SELFPAY ==
[2018-09-21] MEDS ORDERED: ACETAMINOPHEN 325 MG TABLET PO ONE ×2 (05:14→15:15)
[2018-09-21] MEDS ORDERED: NORMAL SALINE 1000 ML 1,000 ML IV ONE (05:14)
[2018-09-21] MEDS ORDERED: METHYLPREDNISOLONE INJ 125 MG/2 ML SDV IV ONE (05:14)
[2018-09-21] MEDS ORDERED: IPRATROPIUM/ALBUTEROL 0.5-2.5 MG/3 ML AMPUL NEB ONE ×2 (05:14→13:07)
--- NOTE | 2018-09-21 05:22 | ER Document Report ---
ED General - General TRAVEL OUTSIDE OF THE [place] IN LAST 30 DAYS: No <DANIEL ROBLES - Last Filed: 09/21/18 07:53> <RAEGAN GATES - Last Filed: 09/21/18 19:29> - General Chief Complaint: Shortness Of Breath Stated Complaint: Shortness of Breath Time Seen by Provider: 09/21/18 05:09 Notes: Patient is a 48-year-old female that comes emergency department for chief complaint of fever/chills, cough, shortness of breath, sensation of palpitations, and some pain across her chest worse on the left with cough. Some occasional yellowish sputum production. Symptoms worsening over the past couple of days or so. She has a history of asthma, states she used her inhaler until it ran out, she does not smoke. Remaining medical history includes cholecystectomy, heavy vaginal bleeding with frequent anemia requiring transfusion (she states that she was diagnosed with heart strain with elevated troponin with a severe anemia case but states she had a catheterization but no stents placed). Denies any obvious sick contacts. Did not have influenza vaccine. (DANIEL ROBLES) - Related Data Allergies/Adverse Reactions: Sulfa (Sulfonamide Antibiotics) Allergy (Intermediate, Verified 09/21/18 08:00) RASH aspirin [From Aspirin Regimen Romero/Calcium] Allergy (Verified 09/21/18 08:00) calcium carbonate [From Aspirin Regimen Romero/Calcium] Allergy (Verified 09/21/18 08:00) Past Medical History - General Information source: Patient - Social History Smoking Status: Never Smoker Frequency of alcohol use: None Drug Abuse: None Lives with: Family Family History: Reviewed & Not Pertinent - Past Medical History Cardiac Medical History: Denies: Hx Congestive Heart Failure, Hx Heart Attack, Hx Hypertension Pulmonary Medical History: Reports: Hx Asthma Denies: Hx Bronchitis, Hx COPD Neurological Medical History: Reports: Hx Migraine Renal/ Medical History: Denies: Hx End Stage Renal Disease, Hx Kidney Stones, Hx Peritoneal Dialysis GI Medical History: Reports: Hx Ulcer Musculoskeletal Medical History: Reports Hx Arthritis Psychiatric Medical History: Reports: Hx Bipolar Disorder, Hx Depression, Hx Post Traumatic Stress Disorder Denies: Hx Schizophrenia Past Surgical History: Reports: Hx Section, Hx Cholecystectomy, Hx Orthopedic Surgery - shoulder - Immunizations Hx Diphtheria, Pertussis, Tetanus Vaccination: Yes <DANIEL ROBLES - Last Filed: 09/21/18 07:53> Review of Systems - Review of Systems Constitutional: See HPI EENT: No symptoms reported Cardiovascular: See HPI Respiratory: See HPI Gastrointestinal: No symptoms reported Genitourinary: No symptoms reported Female Genitourinary: No symptoms reported Musculoskeletal: No symptoms reported Skin: No symptoms reported Hematologic/Lymphatic: No symptoms reported Neurological/Psychological: No symptoms reported <DANIEL ROBLES - Last Filed: 09/21/18 07:53> Physical Exam <DANIEL ROBLES - Last Filed: 09/21/18 07:53> - Vital signs Vitals: Temp Pulse Resp BP Pulse Ox 100.9 F H 96 20 148/54 H 97 09/21/18 04:46 09/21/18 04:46 09/21/18 04:46 09/21/18 04:46 09/21/18 04:46 - Notes Notes: GENERAL: Alert, interacts well. No acute distress. HEAD: Normocephalic, atraumatic. EYES: Pupils equal, round, and reactive to light. Extraocular movements intact. ENT: Oral mucosa moist, tongue midline. Oropharynx unremarkable. Airway patent. Nares patent, no nasal septal hematoma, TM's intact. NECK: Full range of motion. Supple. Trachea midline. LUNGS: Expiratory wheezes throughout. Frequent tight cough. Nontender chest. However no tachypnea or labored breathing. HEART: Borderline tachycardia, normal rhythm, no murmur. ABDOMEN: Soft, non-tender. Non-distended. Bowel sounds present in all 4 quadrants. GENITOURINARY: Deferred EXTREMITIES: Moves all 4 extremities spontaneously. No edema, normal radial and dorsalis pedis pulses bilaterally. No cyanosis. BACK: no cervical, thoracic, lumbar midline tenderness. No saddle anesthesia, normal distal neurovascular exam. NEUROLOGICAL: Alert and oriented x3. Normal speech. Cranial nerves II through XII grossly intact. PSYCH: Normal affect, normal mood. SKIN: flushed and warm (DANIEL ROBLES) Course - Laboratory Result Diagrams: 09/21/18 06:30 09/21/18 05:37 <DANIEL ROBLES - Last Filed: 09/21/18 07:53> - Laboratory Result Diagrams: 09/21/18 15:35 09/21/18 05:37 <RAEGAN GATES - Last Filed: 04/26/19 19:29> - Re-evaluation Re-evalutation: Patient febrile, coughing, has expiratory wheezes throughout. However she is not in distress, has borderline heart rate, no hypotension. Septic work-up was initiated, lactic acid not elevated, CBC clotted and will need to be rechecked. Chemistry generally unremarkable. Chest x-ray does not show pneumonia. Patient is much improved after DuoNeb, wheezing has resolved. CBC is still pending. Patient was given doxycycline for possible pneumonia although this could be a viral process. CBC finally resulted, no leukocytosis, shows microcytic anemia with hemoglobin of 6.4. Patient got up and ambulated with some lightheadedness, heart rate went up to 110-115, she becomes more short of breath. Because of symptomatic anemia she will be transfused. Patient has a history which is long-standing of chronic anemia secondary to heavy vaginal bleeding and she was supposed to have either an ablation or hysterectomy but lost her insurance. Discussed with patient, she will be transfused 2 units of packed red blood cells, monitored, possibly di scharged home with steroids, albuterol refills, doxycycline, versus admission. Patient states agreement with plan. Discussed with Dr. Smith. (DANIEL ROBLES) 09/21/18 19:27 Patient received 2 units of blood. A repeat CBC was done and her hemoglobin was 8.3 indicating an appropriate response. During her course today she had another episode of shortness of breath in which she received 1 DuoNeb. She reported great relief from it and needed no further treatments. She also received Tylenol 975 mg 1 time for headache. After her treatment course she ambulated around the ER without difficulty, was steady on her feet, and did not feel dizzy or lightheaded. She was deemed appropriate for discharge home. Her vital signs were stable on discharge she was given return strict precautions. (RAEGAN GATES) - Vital Signs Vital signs: Temp Pulse Resp BP Pulse Ox 98.6 F 101 H 16 121/64 97 09/21/18 15:01 09/21/18 15:01 09/21/18 15:01 09/21/18 15:00 09/21/18 15:01 - Laboratory Laboratory results interpreted by me: 09/21/18 09/21/18 09/21/18 05:37 06:30 07:39 RBC 3.62 L Hgb 6.4 L Hct 22.1 L MCV 61 L MCH 17.7 L MCHC 28.9 L RDW 19.2 H Seg Neutrophils % Lymphocytes % Monocytes % 16.7 H Sodium 134.9 L Glucose 125 H AST 47 H Urine Ketones Urine Blood Urine Ascorbic Acid Crossmatch See Detail 09/21/18 09/21/18 07:54 15:35 RBC Hgb 8.3 L Hct 27.4 L MCV 67 L D MCH 20.2 L MCHC 30.3 L RDW 23.2 H Seg Neutrophils % 88.0 H Lymphocytes % 9.4 L Monocytes % 2.3 L Sodium Glucose AST Urine Ketones TRACE H Urine Blood SMALL H Urine Ascorbic Acid 20 H Crossmatch Discharge <DANIEL ROBLES - Last Filed: 09/21/18 07:53> <RAEGAN GATES - Last Filed: 09/21/18 19:29> - Discharge Clinical Impression: Wheezing, Cough, Symptomatic anemia Fever Qualifiers: Fever type: unspecified Qualified Code(s): R50.9 - Fever, unspecified Condition: Stable Disposition: HOME, SELF-CARE Additional Instructions: Your work-up shows low hemoglobin, you were transfused because of this. Follow up with OBGYN for definitive treatment. No pneumonia seen on your chest x-ray, however because of your fever, productive cough, and evaluation we are placing you on doxycycline, prednisone for asthma, albuterol refills. Follow-up with primary care. Return immediately if you worsen. Prescriptions: Albuterol Sulfate [Proventil 0.5% Neb 2.5 mg/0.5 ml Vial.neb] 2.5 mg NEB Q4HP PRN #30 vial.neb PRN Reason: Doxycycline Hyclate 100 mg PO BID #14 capsule Prednisone [Deltasone 20 mg Tablet] 3 tab PO DAILY 5 Days #15 tablet
[2018-09-21 06:23] LABS: VENOUS BLOOD BASE EXCESS -0.8 mmol/L; VENOUS BLOOD HCO3 24.4 mmol/L (20-32); VENOUS BLOOD PCO2 42.8 mmHg (35-63); VENOUS BLOOD PH 7.37 (7.30-7.42)
--- NOTE | 2018-09-21 06:26 | RADIOLOGY REPORT (SQ) ---
EXAM DESCRIPTION: XR CHEST 1 VIEW COMPLETED DATE/TME: 09/21/2018 05:16 CLINICAL HISTORY: 48 years, Female, fever, cough COMPARISON: None. NUMBER OF VIEWS: One TECHNIQUE: AP view of the chest LIMITATIONS: None. FINDINGS: The lungs are clear. The heart is size. There is no pneumothorax or pleural effusion. There is no acute fracture IMPRESSION: No acute cardiopulmonary abnormality copyright 2010 [employer]- All Rights Reserved
[2018-09-21 06:29] LABS: ALANINE AMINOTRANSFERASE 37 U/L (9-52); ALKALINE PHOSPHATASE 41 U/L (38-126); ANION GAP 10 (5-19); ASPARTATE AMINO TRANSFERASE 47 U/L (14-36); BILIRUBIN,DIRECT 0.4 mg/dL (0.0-0.4); BILIRUBIN,TOTAL 0.5 mg/dL (0.2-1.3); BLOOD UREA NITROGEN 7 mg/dL (7-20); CALCIUM 8.8 mg/dL (8.4-10.2); CARBON DIOXIDE 25 mmol/L (22-30); CHLORIDE 100 mmol/L (98-107); GLUCOSE 125 mg/dL (75-110); POTASSIUM 4.2 mmol/L (3.6-5.0); SODIUM 134.9 mmol/L (137-145); TOTAL PROTEIN 7.3 g/dL (6.3-8.2)
[2018-09-21 07:02] LABS: ABSOLUTE BASOPHILS # (AUTO) 0.1 10^3/uL (0.0-0.2); ABSOLUTE LYMPHOCYTES (AUTO) 1.2 10^3/uL (0.5-4.7); ABSOLUTE MONOCYTES (AUTO) 1.1 10^3/uL (0.1-1.4); ABSOLUTE NEUT (AUTO) 4.4 10^3/uL (1.7-8.2); EOSINOPHILS % (AUTO) 0.2 % (0-6); HEMATOCRIT 22.1 % (36.0-47.0); LYMPHOCYTES % (AUTO) 17.1 % (13-45); MEAN CORPUSCULAR HEMOGLOBIN 17.7 pg (27.0-33.4); MEAN CORPUSCULAR HGB CONC 28.9 g/dL (32.0-36.0); MONOCYTES % (AUTO) 16.7 % (3-13); PLATELET COUNT 315 10^3/uL (150-450); RED BLOOD COUNT 3.62 10^6/uL (3.72-5.28); RED CELL DISTRIBUTION WIDTH 19.2 % (11.5-14.0); TOTAL CELLS COUNTED % (AUTO) 100 %; WHITE BLOOD COUNT 6.8 10^3/uL (4.0-10.5)
[2018-09-21 07:26] LABS: A TYPE INFLUENZA AG NEGATIVE (NEGATIVE); B INFLUENZA AG NEGATIVE (NEGATIVE)
[2018-09-21 07:31] LABS: HEMOGLOBIN 6.4 g/dL (12.0-15.5)
[2018-09-21 07:34] LABS: ANISOCYTOSIS 2+; HYPOCHROMASIA 2+; PLATELET COMMENT ADEQUATE; POLYCHROMASIA SLIGHT; STOMATOCYTES 1+; TEAR DROP CELLS SLIGHT
[2018-09-21 07:35] LABS: MEAN CORPUSCULAR VOLUME 61 fl (80-97)
--- NOTE | 2018-09-21 07:39 | EKG REPORT ---
SEVERITY:- NORMAL ECG - SINUS RHYTHM : Confirmed by: Charly Erwin MD 21-Sep-2018 07:37:47
[2018-09-21] MEDS ORDERED: DOXYCYCLINE HYCLATE 100 MG TABLET PO ONE (07:44)
[2018-09-21] MEDS ORDERED: NORMAL SALINE 250 ML IV PRN ×2 (07:44)
[2018-09-21 08:08] LABS: APPEARANCE,URINE SLIGHTLY-CLOUDY; BILIRUBIN,URINE NEGATIVE (NEGATIVE); COLOR,URINE YELLOW; GLUCOSE, URINE NEGATIVE (NEGATIVE); KETONES,URINE TRACE mg/dL (NEGATIVE); LEUKOCYTE ESTERASE,URINE NEGATIVE (NEGATIVE); NITRITE,URINE NEGATIVE (NEGATIVE); PROTEIN,URINE NEGATIVE (NEGATIVE); UROBILINOGEN,URINE NEGATIVE mg/dL (<2.0)
[2018-09-21 14:13] LABS: PATH REVIEW PATHOLOGIST REVIEWED
[2018-09-21 15:04] VITALS: BP 121/64
[2018-09-21 16:20] LABS: ABSOLUTE LYMPHOCYTES (AUTO) 0.7 10^3/uL (0.5-4.7); ABSOLUTE MONOCYTES (AUTO) 0.2 10^3/uL (0.1-1.4); ABSOLUTE NEUT (AUTO) 6.2 10^3/uL (1.7-8.2); BASOPHILS % (AUTO) 0.3 % (0-2); HEMATOCRIT 27.4 % (36.0-47.0); HEMOGLOBIN 8.3 g/dL (12.0-15.5); LYMPHOCYTES % (AUTO) 9.4 % (13-45); MEAN CORPUSCULAR HEMOGLOBIN 20.2 pg (27.0-33.4); MEAN CORPUSCULAR HGB CONC 30.3 g/dL (32.0-36.0); MONOCYTES % (AUTO) 2.3 % (3-13); PLATELET COUNT 332 10^3/uL (150-450); RED CELL DISTRIBUTION WIDTH 23.2 % (11.5-14.0); TOTAL CELLS COUNTED % (AUTO) 100 %
[2018-09-21 16:23] LABS: MEAN CORPUSCULAR VOLUME 67 fl (80-97)
== END 2018-09-21 16:45 | disposition home or self-care (01) ==
LOC: ER 04:32
DX: D50.0 Iron deficiency anemia secondary to blood loss (chronic) (principal); N93.9 Abnormal uterine and vaginal bleeding, unspecified; J45.909 Unspecified asthma, uncomplicated; R06.02 Shortness of breath; R50.9 Fever, unspecified; R05 Cough; R07.9 Chest pain, unspecified; R42 Dizziness and giddiness; R51 Headache; Z88.2 Allergy status to sulfonamides; Z88.6 Allergy status to analgesic agent
CPT/HCPCS: 93005; 94640 ×2; 99284; 96361; 96374; 86900; 86901; 36415; 87040; 36430; 86850; 85025; 81025; 80053; 81001; 86920; 82803; 83605; 87804; 71045; 93010; P9016; J2930; J7030; J7620

== ENCOUNTER 2018-11-22 18:16 | Emergency (ER) | payer SELFPAY ==
--- NOTE | 2018-11-22 21:04 | RADIOLOGY REPORT (SQ) ---
EXAM DESCRIPTION: XR CHEST 1 VIEW COMPLETED DATE/TME: 11/22/2018 20:17 CLINICAL HISTORY: 48 years Female cp COMPARISON: 09/21/2018. FINDINGS: The cardiomediastinal silhouette appears unremarkable. No consolidating infiltrates or pleural effusions. No pneumothorax. IMPRESSION: No acute abnormality is identified.
[2018-11-22 21:09] LABS: ABSOLUTE BASOPHILS # (AUTO) 0.1 10^3/uL (0.0-0.2); ABSOLUTE EOSINOPHILS # (AUTO) 0.4 10^3/uL (0.0-0.6); ABSOLUTE LYMPHOCYTES (AUTO) 2.4 10^3/uL (0.5-4.7); ABSOLUTE MONOCYTES (AUTO) 0.8 10^3/uL (0.1-1.4); ABSOLUTE NEUT (AUTO) 5.8 10^3/uL (1.7-8.2); BASOPHILS % (AUTO) 0.7 % (0-2); EOSINOPHILS % (AUTO) 3.7 % (0-6); HEMATOCRIT 29.7 % (36.0-47.0); LYMPHOCYTES % (AUTO) 25.8 % (13-45); MEAN CORPUSCULAR HEMOGLOBIN 19.4 pg (27.0-33.4); MEAN CORPUSCULAR HGB CONC 30.2 g/dL (32.0-36.0); MONOCYTES % (AUTO) 8.1 % (3-13); PLATELET COUNT 532 10^3/uL (150-450); RED BLOOD COUNT 4.64 10^6/uL (3.72-5.28); RED CELL DISTRIBUTION WIDTH 20.9 % (11.5-14.0); SEGMENTED NEUTROPHILS % (AUTO) 61.7 % (42-78); TOTAL CELLS COUNTED % (AUTO) 100 %; WHITE BLOOD COUNT 9.4 10^3/uL (4.0-10.5)
[2018-11-22 21:10] LABS: MEAN CORPUSCULAR VOLUME 64 fl (80-97)
[2018-11-22 21:22] LABS: ALANINE AMINOTRANSFERASE 20 U/L (9-52); ALBUMIN 4.4 g/dL (3.5-5.0); ALKALINE PHOSPHATASE 49 U/L (38-126); ANION GAP 10 (5-19); ASPARTATE AMINO TRANSFERASE 20 U/L (14-36); BILIRUBIN,DIRECT 0.3 mg/dL (0.0-0.4); BILIRUBIN,TOTAL 0.4 mg/dL (0.2-1.3); BLOOD UREA NITROGEN 8 mg/dL (7-20); CALCIUM 9.5 mg/dL (8.4-10.2); CARBON DIOXIDE 27 mmol/L (22-30); CHLORIDE 102 mmol/L (98-107); CREATINE KINASE 30 U/L (30-135); GLUCOSE 72 mg/dL (75-110); POTASSIUM 4.1 mmol/L (3.6-5.0); SODIUM 138.7 mmol/L (137-145); TOTAL PROTEIN 7.7 g/dL (6.3-8.2)
[2018-11-22 21:34] LABS: CREATINE KINASE MB 0.53 ng/mL (<4.55)
--- NOTE | 2018-11-22 21:35 | ER Document Report ---
ED Medical Screen (RME) - General Chief Complaint: Chest Tightness Stated Complaint: SHORTNESS OF BREATH Time Seen by Provider: 11/22/18 21:31 Notes: 48-year-old female coming in today with chief complaint dizziness, exhausted, headache, shortness of breath, tight chest, excessively low hemoglobin. Patient reports that she has chronic anemia from excessive period bleeding and has been transfused multiple times in the past.. She does not have any history of heart disease but does have a history of asthma. I have treated and performed a rapid initial assessment of this patient. A comprehensive ED assessment and evaluation of the patient, analysis of test results and completion of medical decision making process will be conducted by additional ED providers. PHYSICAL EXAMINATION: GENERAL: Well-appearing, well-nourished and in no acute distress. A&Ox4. Answers questions appropriately. LUNGS: Breath sounds clear to auscultation bilaterally and equal. No wheezes rales or rhonchi. HEART: Regular rate and rhythm without murmurs, rubs, gallops. ABDOMEN: Soft, nondistended abdomen. No guarding, no rebound. Normal bowel sounds present. No CVA tenderness bilaterally. + mild epigastric tenderness (cannot elicit thorough abd exam w/o table, however). Extremities: No cyanosis, clubbing, or edema b/l. NEUROLOGICAL: Normal speech, normal gait. PSYCH: Normal mood, normal affect. TRAVEL OUTSIDE OF THE [place] IN LAST 30 DAYS: No - Related Data Allergies/Adverse Reactions: Sulfa (Sulfonamide Antibiotics) Allergy (Intermediate, Verified 11/22/18 18:20) RASH aspirin [From Aspirin Regimen Romero/Calcium] Allergy (Verified 11/22/18 18:20) calcium carbonate [From Aspirin Regimen Romero/Calcium] Allergy (Verified 11/22/18 18:20) Past Medical History - Past Medical History Cardiac Medical History: Denies: Hx Congestive Heart Failure, Hx Heart Attack, Hx Hypertension Pulmonary Medical History: Reports: Hx Asthma Denies: Hx Bronchitis, Hx COPD Neurological Medical History: Reports: Hx Migraine Renal/ Medical History: Denies: Hx End Stage Renal Disease, Hx Kidney Stones, Hx Peritoneal Dialysis GI Medical History: Reports: Hx Ulcer Musculoskeltal Medical History: Reports Hx Arthritis Psychiatric Medical History: Reports: Hx Bipolar Disorder, Hx Depression, Hx Post Traumatic Stress Disorder Denies: Hx Schizophrenia Past Surgical History: Reports: Hx Section, Hx Cholecystectomy, Hx Orthopedic Surgery - shoulder - Immunizations Hx Diphtheria, Pertussis, Tetanus Vaccination: Yes History of Influenza Vaccine for 02/2017 - 07/2017 Season: No Physical Exam - Vital signs Vitals: Temp Pulse Resp BP Pulse Ox 98.7 F 74 16 124/69 99 11/22/18 18:48 11/22/18 18:48 11/22/18 18:48 11/22/18 18:48 11/22/18 18:48 Course - Vital Signs Vital signs: Temp Pulse Resp BP Pulse Ox 98.7 F 74 16 124/69 99 11/22/18 18:48 11/22/18 18:48 11/22/18 18:48 11/22/18 18:48 11/22/18 18:48 - Laboratory Result Diagrams: 11/22/18 20:50 11/22/18 20:50 Laboratory results interpreted by me: 11/22/18 11/22/18 20:50 20:50 Hgb 9.0 L Hct 29.7 L MCV 64 L MCH 19.4 L MCHC 30.2 L RDW 20.9 H Plt Count 532 H Glucose 72 L
[2018-11-22 21:36] LABS: ANISOCYTOSIS 2+; HYPOCHROMASIA 2+; PLATELET COMMENT INCREASED; POLYCHROMASIA 1+; STOMATOCYTES 1+
[2018-11-22 21:39] LABS: TROPONIN I < 0.012 ng/mL
--- NOTE | 2018-11-22 23:07 | EKG REPORT ---
SEVERITY:- NORMAL ECG - SINUS RHYTHM : Confirmed by: Beckie Olguin 22-Nov-2018 23:06:01
--- NOTE | 2018-11-23 00:09 | ER Document Report ---
ED General - General Chief Complaint: Chest Tightness Stated Complaint: SHORTNESS OF BREATH Time Seen by Provider: 11/22/18 21:31 Primary Care Provider: ELMO STEINER MD [ACTIVE STAFF] - 11/26/18 Notes: Patient is a pleasant 48-year-old female presents with complaints of dizziness lightheadedness upon standing. She says sometimes she feels as if things are moving back and forth. She has some headache. She says she does have history recurrent headaches. She says she typically gets these symptoms whenever she is becoming very anemic. She is required blood transfusions in the past. She has anemia due to heavy vaginal bleeding. She says the last time she had symptoms like this she did require transfusion. She was admitted here a few years ago and required transfusions due to hemoglobin 5.5. She denies any syncope. She says that her vaginal bleeding actually just stopped this morning. No other complaints at this time. She does take iron supplementation as well as multivitamin. TRAVEL OUTSIDE OF THE [place] IN LAST 30 DAYS: No - Related Data Allergies/Adverse Reactions: Sulfa (Sulfonamide Antibiotics) Allergy (Intermediate, Verified 11/22/18 18:20) RASH aspirin [From Aspirin Regimen Romero/Calcium] Allergy (Verified 11/22/18 18:20) calcium carbonate [From Aspirin Regimen Romero/Calcium] Allergy (Verified 11/22/18 18:20) Past Medical History - Social History Smoking Status: Unknown if Ever Smoked Frequency of alcohol use: None Drug Abuse: None Family History: Reviewed & Not Pertinent - Past Medical History Cardiac Medical History: Denies: Hx Congestive Heart Failure, Hx Heart Attack, Hx Hypertension Pulmonary Medical History: Reports: Hx Asthma Denies: Hx Bronchitis, Hx COPD Neurological Medical History: Reports: Hx Migraine Renal/ Medical History: Denies: Hx End Stage Renal Disease, Hx Kidney Stones, Hx Peritoneal Dialysis GI Medical History: Reports: Hx Ulcer Musculoskeletal Medical History: Reports Hx Arthritis Psychiatric Medical History: Reports: Hx Bipolar Disorder, Hx Depression, Hx Post Traumatic Stress Disorder Denies: Hx Schizophrenia Past Surgical History: Reports: Hx Section, Hx Cholecystectomy, Hx Orthopedic Surgery - shoulder - Immunizations Hx Diphtheria, Pertussis, Tetanus Vaccination: Yes Review of Systems - Review of Systems Notes: My Normal Review Basic REVIEW OF SYSTEMS: CONSTITUTIONAL : Denies fever, chills, or sweats. Denies recent illness. RESPIRATORY: Denies cough, cold, or chest congestion. Some mild dyspnea GASTROINTESTINAL: Denies abdominal pain. Denies nausea, vomiting, or diarrhea. GENITOURINARY: Denies difficulty urinating, painful urination, burning, frequency, or blood in urine. FEMALE GENITOURINARY: History of dysmenorrhea. Hematologic: History of chronic anemia MUSCULOSKELETAL: Denies neck or back pain or joint pain or swelling. SKIN: Denies rash or skin lesions. NEUROLOGICAL: Denies altered mental status or loss of consciousness. Had a headache. Denies weakness or paralysis or loss of use of either side. Denies problems with gait or speech. Denies sensory or motor loss. ALL OTHER SYSTEMS REVIEWED AND NEGATIVE. Physical Exam - Vital signs Vitals: Temp Pulse Resp BP Pulse Ox 98.7 F 74 16 124/69 99 11/22/18 18:48 11/22/18 18:48 11/22/18 18:48 11/22/18 18:48 11/22/18 18:48 - Notes Notes: General Appearance: Well nourished, alert, cooperative, no acute distress, no obvious discomfort. Well-appearing Vitals: reviewed, See vital signs table. Eyes: PERRL, EOMI, Conjuctiva clear Mouth: No decreasd moisture Throat: No tonsillar inflammation, No airway obstruction, No lymphadenopathy Neck: Supple, no neck tenderness, No thyromegaly Lungs: No wheezing, No rales, No rhonci, No accessory muscle use, good air exchange bilaterally. Heart: Normal rate, Regular rythm, No murmur, no rub Abdomen: Normal BS, soft, No rigidity, No abdominal tenderness, No guarding, no rebound, no abdominal masses, no organomegaly Extremities: strength 5/5 in all extremities, good pulses in all extremities, no swelling or tenderness in the extremities, no edema. Skin: warm, dry, appropriate color, no rash Neuro: speech clear, oriented x 3, normal affect, responds appropriately to questions. Cranial nerves II through XII are intact. Distal sensation intact. Patient was all extremities without difficulty. No focal neurologic deficits on exam. Course - Re-evaluation Re-evalutation: 11/23/18 02:49 Patient is feeling improved. Meclizine did help with her dizziness. Suspect there is a vertiginous aspect as well being that the dizziness she is describing is almost like a spinning sensation but also more of a sensation which feels like "about. This is different than what you typically see with anemia or with anemia he typically have a blacking out or near blacking out type dizziness. Patient is anemic but nowhere near the need for blood transfusion. Hemoglobin is 9. I informed her that she still have a low threshold to return to ER if she has syncope, difficulty breathing, or worsening of her symptoms. I encouraged her to follow-up closely with the advertising production manager. Dictation of this chart was performed using voice recognition software; therefore, there may be some unintended grammatical errors. - Vital Signs Vital signs: Temp Pulse Resp BP Pulse Ox 98.7 F 74 16 124/69 99 11/22/18 18:48 11/22/18 18:48 11/22/18 18:48 11/22/18 18:48 11/22/18 18:48 - Laboratory Result Diagrams: 11/22/18 20:50 11/22/18 20:50 Laboratory results interpreted by me: 11/22/18 11/22/18 20:50 20:50 Hgb 9.0 L Hct 29.7 L MCV 64 L MCH 19.4 L MCHC 30.2 L RDW 20.9 H Plt Count 532 H Glucose 72 L - EKG Interpretation by Me Additional EKG results interpreted by me: 11/23/18 00:08 EKG is reviewed and interpreted by me. EKG shows sinus rhythm with a rate of [address] segment elevation or depression. No ischemic T wave inversions. [place] interval, QRS duration, QT intervals are within normal range. Procedures - Additional Procedures IV insertion Additional Procedures: IV insertion Notes: 11/23/18 01:[address] to [address] peripheral IV. I therefore did an ultrasound- guided IV placement. A clean area with ChloraPrep swab. Went just proximal to the left antecubital region and medial aspect. I visualized vein under ultr asound and to cannulate the vein under ultrasound guidance. Dark nonpulsatile blood return. IV flushed well. No complications. Discharge - Discharge Clinical Impression: Chronic blood loss anemia, Dizziness Condition: Good Disposition: HOME, SELF-CARE Additional Instructions: Please follow-up with gynecology in regards to your recurrent heavy bleeding. Please return to the ER immediately if you feel that your dizziness is getting worse. If worsening shortness of breath, or if you feel that you are worsening in any way. Please continue take iron supplementation. I have prescribed you meclizine. This ia the medication we gave you here that helps with the dizziness. Prescriptions: Meclizine HCl [Antivert 12.5 mg Tablet] 12.5 mg PO BID PRN #14 tab PRN Reason: Dizziness Forms: Return to Work Referrals: ELMO STEINER MD [ACTIVE STAFF] - 11/26/18
[2018-11-23] MEDS ORDERED: MECLIZINE HCL 25 MG TABLET PO ONE (00:15)
[2018-11-23] MEDS ORDERED: NORMAL SALINE 1000 ML 1,000 ML IV ONE (00:15)
[2018-11-23 03:12] VITALS: BP 120/63
[2018-11-23 11:18] LABS: PATH REVIEW PATHOLOGIST REVIEWED
== END 2018-11-23 03:17 | disposition home or self-care (01) ==
LOC: ER 18:16
DX: D50.0 Iron deficiency anemia secondary to blood loss (chronic) (principal); N93.9 Abnormal uterine and vaginal bleeding, unspecified; R51 Headache; R42 Dizziness and giddiness; Z88.2 Allergy status to sulfonamides; Z88.8 Allergy status to other drugs, medicaments and biological substances; Z79.899 Other long term (current) drug therapy; J45.909 Unspecified asthma, uncomplicated
CPT/HCPCS: 93005; 99284; 96360; 36415; 82553; 82550; 85025; 80053; 84484; 71045; 93010; J7030